=== PATIENT | female | born 1965 | race Caucasian/White ===

== ENCOUNTER → 2018-03-21 | Outpatient (CLI) | payer BC ==
[~2018-03-21] MED LIST: HYDROCODONE-AP1 EAC6 PO; IBUPROFEN 800800 M1 PO; ZOFRAN ODT4 MG PO
== END ==
LOC: M.ULTRA 13:55
DX: E04.1 Nontoxic single thyroid nodule (principal); E83.52 Hypercalcemia

== ENCOUNTER → 2019-06-30 | Outpatient (CLI) | payer OTHER | LOC: M.MRI 07:12 | DX: M16.12 Unilateral primary osteoarthritis, left hip (principal) ==

== ENCOUNTER → 2019-07-11 | Outpatient (CLI) | payer OTHER | LOC: M.NUC 07-03 16:50 | DX: M25.852 Other specified joint disorders, left hip (principal); M85.60 Other cyst of bone, unspecified site; N28.89 Other specified disorders of kidney and ureter ==

== ENCOUNTER 2020-02-06 22:08 | Emergency (ER) | payer OTHER ==
[~2020-02-06] VITALS: Ht 157.5 cm; Wt 72.1 kg
[2020-02-06] MEDS ORDERED: MELOXICAM7.5 MG PO (22:47)
[2020-02-06 22:58] LABS: ABSOLUTE EOSINOPHILS 0.2 thou/uL (0.0-0.7); ABSOLUTE LYMPHOCYTES 3.2 thou/uL (0.8-5.3); ABSOLUTE MONOCYTES 0.6 thou/uL (0.0-1.2); ABSOLUTE NEUTROPHILS 4.2 thou/uL (1.6-8.1); BASOPHILS 0.6 %; EOSINOPHILS 2.7 %; HEMATOCRIT 40.9 % (37.0-47.0); HEMOGLOBIN 14.2 gm/dL (12.0-15.0); LYMPHOCYTES 38.8 %; MCHC 34.7 g/dL (28.0-37.0); MCV 92.1 fL (80.0-100.0); MONOCYTES 7.4 %; MPV 7.2 fl. (7.2-11.1); NUCLEATED RBCS 0 /100WBC; PLATELET COUNT* 349 thou/uL (150-400); POLYS 50.5 %; RBC 4.44 mil/uL (4.20-5.00); WBC 8.2 thou/uL (4.0-11.0)
[2020-02-06 23:06] LABS: CALCIUM 9.1 mg/dL (8.5-10.1); CREATININE 1.1 mg/dL (0.6-1.3); POTASSIUM 3.8 mmol/L (3.5-5.1)
[2020-02-06 23:11] LABS: ALBUMIN 4.1 g/dL (3.4-5.0); MAGNESIUM 2.1 mg/dL (1.8-2.4); TOTAL BILIRUBIN 0.4 mg/dL (<0.1-1.0); TOTAL PROTEIN 7.8 g/dL (6.4-8.2)
[2020-02-06 23:52] VITALS: BP 130/85
--- NOTE | 2020-02-07 10:29 | EKG ---
[place] [address] ELECTROCARDIOGRAM REPORT Name: MARQUESROSA Kamilah Room: [facility]#: [id number] Admission: 02/06/20 Attend Phys: Discharge: 02/06/20 Date of : 69 Date of Service: 02/06/202220 Report #: [id number] THIS REPORT FOR: //name// [facility] ED Test Date: 2020-02-06 Test Time: 22:21:56 Pat Name: ROSA MOHAN Department: Room: Gender: Export Manager: [facility] : 1965 Requested By: Kandi Davidson Order Number: [id number] MD: Jaden Kwon Measurements Intervals [place] Rate: 149 P: 0 WV: 138 QRS: -35 QRSD: 90 T: 148 QT: 301 QTc: 474 Interpretive Statements Sinus tachycardia nonspecific st segment changes Inferior infarct, old Consider anterior infarct Lateral leads are also involved Baseline wander in lead(s) II,III,aVR,aVL,aVF,V2,V6 Compared to ECG 07/10/2014 21:36:36 Myocardial infarct finding now present Sinus rhythm no longer present Electronically Signed On 02-07-2020 10:28:55 CDT by Jaden Kwon [email or web address] <ELECTRONICALLY SIGNED> By: Jaden Kwon MD, [facility] 02/07/20 1028 20 20 Jaden Kwon MD, [facility] /EPI
== END 2020-02-06 23:53 | disposition home or self-care (01) ==
LOC: M.ERS 22:08
PROVIDERS: Emergency Medicine
DX: I47.1 Supraventricular tachycardia (principal); F17.210 Nicotine dependence, cigarettes, uncomplicated

== ENCOUNTER → 2021-06-20 | Outpatient (CLI) | payer OTHER ==
[~2021-06-20] MED LIST changes: +MELOXICAM7.5 MG PO
== END ==
LOC: M.ULTRA 06-16 09:00
PROVIDERS: ATTEND Registered Nurse Diabetes Educator
DX: R10.11 Right upper quadrant pain (principal)